=== PATIENT | female | born 1965 | race Caucasian/White ===

== ENCOUNTER 2021-05-08 14:19 | Emergency (ER) | payer OTHER, SELFPAY ==
--- NOTE | ~2021-05-08 | XR_ITS ---
EXAMINATION: XR finger 5th LT min 2V EXAM DATE: 05/08/2021 14:41 INDICATION: Hyperabduction 5th finger. TECHNIQUE: Left 5th finger frontal, lateral and oblique projections obtained and reviewed. There i s no prior study for comparison. FINDINGS: There are no acute left 5th finger fractures or dislocations identified. There is no subcu taneous gas. The soft tissue is unremarkable. There are no radiopaque foreign bodies. IMPRESSION: No acute osseous findings. Reviewed, dictated and finalized at location A. [facility] IMPRESSION: No acute osseous findings.
[2021-05-08 14:30] VITALS: BP 119/79; PULSE 66; RESP 14; TEMP 36.7; O2SAT 99
--- NOTE | 2021-05-08 15:03 | ED.UPPEXIN ---
HPI - Extremity Injury (Upper) General Chief Complaint: Extremity Injury, Upper Stated Complaint: left pinky dislocation Time Seen by Provider: 05/08/21 14:55 Source: patient and RN notes reviewed Mode of arrival: ambulatory Limitations: no limitations History of Present Illness HPI narrative: Patient presents today complaining of a left fifth finger injury. States he got caught up in her dog's leash and pulled this morning at 9:00. States the tip of the finger is slightly numb. She currently rates her pain 10/10 at times which increases with bending. She has been taking ibuprofen with mild relief. States she believes the finger is dislocated. MD complaint: injury to: finger Related Data Home Medications Medication Instructions Recorded Confirmed ergocalciferol (vitamin D2) 05/08/21 esomeprazole magnesium [Nexium] 20 mg PO DAILY 05/08/21 05/08/21 hydrochlorothiazide 05/08/21 levothyroxine 05/08/21 losartan 05/08/21 Allergies Allergy/AdvReac Type Severity Reaction Status Date / Time venom-honey bee AdvReac Severe Anaphylactic Verified 05/08/21 14:32 Shock amoxicillin AdvReac Intermediate Diarrhea Verified 05/08/21 14:32 clavulanic acid AdvReac Intermediate Diarrhea Verified 05/08/21 14:32 Review of Systems Review of Systems: CONSTITUTIONAL: Denies body aches, fever, chills, or sweats. EYES: Denies visual changes, redness, or discharge. ENT: Denies rhinorrhea, congestion, sore throat, or otalgia. CARDIOVASCULAR: Denies chest pain, palpitations, or edema. RESPIRATORY: Denies cough or dyspnea. GASTROINTESTINAL: Denies abdominal pain, nausea, vomiting, or diarrhea. GENITOURINARY: Denies dysuria or hematuria. SKIN: Denies rash, itching, or wounds. MUSCULOSKELETAL: Denies back pain, or myalgia. + Left fifth finger injury NEUROLOGIC: Denies headache, numbness, tingling, or weakness. PSYCH: Denies depression or anxiety. [facility] Past Medical History Medical History (Updated 05/08/21 @ 15:09 by Love Meyer, PICKUP DRIVER, ) GERD (gastroesophageal reflux disease) Hypertension Hypothyroidism Comments At time of signature, I have reviewed and agree with nursing past medical, surgical, social and family history unless otherwise noted. Please see nursing chart for further information. There is no relevant family history pertinent to the presenting complaint Exam Narrative: GENERAL: Well-appearing, well-nourished, and in no acute distress. HEAD: Normocephalic, atraumatic. EYES: EOMI. No redness or drainage. Conjunctivae normal. ENT: Mucous membranes pink and moist. NECK: Normal AROM. CHEST: No respiratory distress. EXTREMITIES: Left fifth finger: Ecchymosis with mild edema throughout. Tenderness to the PIP and DIP. Full range of motion with increased pain. No deformity noted. Distal sensation intact. Capillary refill normal. SKIN: Warm, dry, no rash. Capillary refill normal. Normal skin turgor. NEURO: No focal deficits. Alert and oriented x3. Gait steady. PSYCH: Normal affect. No signs of depression or anxiety. Course Vital Signs Vital signs: Vital Signs Temperature 98.1 F 05/08/21 14:30 Pulse Rate 66 05/08/21 14:30 Respiratory Rate 14 05/08/21 14:30 Blood Pressure 119/79 05/08/21 14:30 Pulse Oximetry 99 05/08/21 14:30 Temperature 98.1 F 05/08/21 14:30 Pulse Rate 66 05/08/21 14:30 Respiratory Rate 14 05/08/21 14:30 Blood Pressure 119/79 05/08/21 14:30 Pulse Oximetry 99 05/08/21 14:30 Reviewed MDM - Extremity Injury (Upper) Differential Diagnosis Differential diagnosis: Likely other (Finger fracture, finger sprain, dislocation) Imaging Data Radiologist's impression: ITS Impressions Finger X-Ray 05/08/21 14:47 IMPRESSION: No acute osseous findings. Critical Care Time Critical Care Time Critical Care Time: No Discharge Plan Discharge Clinical Impression: Other sprain of left little finger, initial encounter Patient
== END 2021-05-08 15:10 | disposition home or self-care (01) ==
PROVIDERS: Emergency Provider Nurse Practitioner; PCP Nurse Practitioner Family
DX: S63.617A Unspecified sprain of left little finger, initial encounter (principal); X58.XXXA Exposure to other specified factors, initial encounter; K21.9 Gastro-esophageal reflux disease without esophagitis; I10 Essential (primary) hypertension; E03.9 Hypothyroidism, unspecified
CPT/HCPCS: 29130; 73140; 99213; G0463

== ENCOUNTER 2022-05-09 18:20 | Emergency (ER) | payer OTHER, SELFPAY ==
[2022-05-09 18:29] VITALS: BP 127/77; PULSE 78; RESP 16; TEMP 36.6; O2SAT 97
--- NOTE | 2022-05-09 19:49 | ED.URI ---
HPI - URI/Sore Throat General Chief Complaint: Upper Respiratory Infection Stated Complaint: Sore Throat Time Seen by Provider: 05/09/22 19:50 Source: patient, RN notes reviewed and old records reviewed Mode of arrival: ambulatory Limitations: no limitations History of Present Illness HPI Narrative: 56 year old female who presents to [facility] care with complaints of sore throat, headache and chills which started this morning with slight cough noted. Patient reports that she has had positive exposure to strep from grandkids. Patient has been taking Ibuprofen for her symptoms. MD elicited complaint: cough and sore throat Onset (ago): day(s) (1) Pain scale (0-10): 2 Treatments prior to arrival: ibuprofen Related Data Home Medications Medication Instructions Recorded Confirmed ergocalciferol (vitamin D2) 1,250 See Rx Instructions .Route .COMPLEX 05/08/21 05/08/21 mcg (50,000 unit) capsule esomeprazole magnesium 20 mg 20 mg PO DAILY 05/08/21 05/08/21 capsule,delayed release (Nexium) hydrochlorothiazide 25 mg tablet 25 mg PO DAILY 05/08/21 05/08/21 levothyroxine 50 mcg tablet 50 mcg PO DAILY 05/08/21 05/08/21 losartan 25 mg tablet 25 mg PO DAILY 05/08/21 05/08/21 Allergies Allergy/AdvReac Type Severity Reaction Status Date / Time venom-honey bee AdvReac Severe Anaphylactic Verified 05/08/21 14:32 Shock amoxicillin AdvReac Intermediate Diarrhea Verified 05/08/21 14:32 clavulanic acid AdvReac Intermediate Diarrhea Verified 05/08/21 14:32 Review of Systems Review of Systems: CONSTITUTIONAL: Reports malaise, chills, sweats, or fever. EYES: Denies visual changes, redness, or discharge. ENT: Reports rhinorrhea, congestion, sinus pain, no otalgia positive for sore throat. CARDIOVASCULAR: Denies chest pain, palpitations, or edema. RESPIRATORY: Reports cough.? Denies dyspnea. GASTROINTESTINAL: Denies abdominal pain, nausea, vomiting, diarrhea SKIN: Denies rash or itching. MUSCULOSKELETAL: Denies myalgia. NEUROLOGIC: Denies headache. All systems reviewed & are unremarkable except as noted in HPI and below PMFSH Past Medical History Medical History Elevated cholesterol GERD (gastroesophageal reflux disease) Hypertension Hypothyroidism Surgical History Surgical History H/O: hysterectomy Social History Social History (Updated 05/20/22 @ 23:37 by Yolanda Olmos NP) Smoking status: Never smoker Alcohol intake: current Alcohol use details: social Substance use: never Gender identity (if verbalized by the patient): Female Comments At time of signature, agree with nursing past medical, surgical, social and family history. There is no relevant family history pertinent to the presenting complaint Exam Narrative: GENERAL: Well-appearing, well-nourished, and in no acute distress. HEAD: Normocephalic EYES: PERRLA, conjunctivae clear ENT: Nares clear, turbinates edematous and erythematous, clear discharge. Mucous membranes moist. TM pearly moreno with dull light reflex bilaterally; no tragal tenderness. Oropharynx erythematous without lesions. Tonsils red and enlarged and without exudate, no drooling, no hoarseness, no trismus, uvula midline. NECK: Supple. lymphadenopathy CHEST: Clear to auscultation, breath sounds equal. No wheezing, rhonchi, rales, or stridor. No respiratory distress, speaks in full sentences, cough noted SAO2 97% on room air. HEART: Regular rate and rhythm. No murmur heard. SKIN: Warm, dry, no rash. NEURO: Alert and oriented x3. PSYCH: Normal mood and affect Course Course Emergency Course: Patient is aware of diagnosis, understands and agrees to treatment plan.? Anticipatory guidance given.? Patient agrees to follow-up as directed and is aware of reasons to seek care at the emergency department. Portions of this record may have been created w
== END 2022-05-09 20:01 | disposition home or self-care (01) ==
PROVIDERS: Emergency Provider Registered Nurse; PCP Family Medicine
DX: J02.0 Streptococcal pharyngitis (principal); K21.9 Gastro-esophageal reflux disease without esophagitis; I10 Essential (primary) hypertension; E03.9 Hypothyroidism, unspecified
CPT/HCPCS: 99213; G0463